=== PATIENT | female | born 2000 | race Caucasian/White ===

== ENCOUNTER 2020-11-18 13:40 | Outpatient (REF) | payer MEDICAID, SELFPAY ==
--- NOTE | ~2020-11-18 | XR_ITS ---
EXAMINATION: XR THORACIC SPINE XR LUMBAR SPINE CLINICAL INFORMATION: Scoliosis. Neck and back pain. COMPARISON: None TECHNIQUE: AP, lateral and swimmer's views of the thoracic spine. AP, lateral and bilateral oblique views of the lumbar spine. FINDINGS: Thoracic spine: There are 11 rib-bearing thoracic vertebral bodies. There is mild rightward curvature of the mid thoracic spine possibly centered at T7-T8. Vertebral body heights and intervertebral disc spaces are maintained. Lumbar spine: There are 5 nonrib-bearing lumbar vertebral bodies. There is mild leftward curvature of the lumbar spine possibly centered at L2-L3. There is relative straightening of the lumbar lordosis on the lateral view. Vertebral body heights and intervertebral disc spaces are maintained. No spondylolysis or spondylolisthesis. XR/XR thoracic spine 3V IMPRESSION: No acute abnormality.
--- NOTE | ~2020-11-18 | XR_ITS ---
EXAMINATION: XR THORACIC SPINE XR LUMBAR SPINE CLINICAL INFORMATION: Scoliosis. Neck and back pain. COMPARISON: None TECHNIQUE: AP, lateral and swimmer's views of the thoracic spine. AP, lateral and bilateral oblique views of the lumbar spine. FINDINGS: Thoracic spine: There are 11 rib-bearing thoracic vertebral bodies. There is mild rightward curvature of the mid thoracic spine possibly centered at T7-T8. Vertebral body heights and intervertebral disc spaces are maintained. Lumbar spine: There are 5 nonrib-bearing lumbar vertebral bodies. There is mild leftward curvature of the lumbar spine possibly centered at L2-L3. There is relative straightening of the lumbar lordosis on the lateral view. Vertebral body heights and intervertebral disc spaces are maintained. No spondylolysis or spondylolisthesis. XR/XR lumbar spine 4V min IMPRESSION: No acute abnormality.
--- NOTE | ~2020-11-18 | US_ITS ---
EXAMINATION: US DIAGNOSTIC ULTRASOUND BREAST, RIGHT CLINICAL INFORMATION: 19-year-old with new palpable mass 7:00 right breast for several months. 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 COMPARISON: Ultrasound right breast 08/03/2015, ultrasound guided right breast biopsy 08/11/2015. TECHNIQUE: Ultrasound right breast is targeted to the area of clinical concern lower right breast. Patient is able to point to the area of concern at time of imaging. Grayscale imaging and color Doppler are performed. FINDINGS: The palpable mass corresponds to a solid smooth oval mass measuring 2.9 x 1.6 x 2.6 cm. There is internal color flow. Finding most likely represents fibroadenoma/fibroepithelial lesion. The previously sampled fibroadenoma 5:00 position is reimaged separately and is similar in size measuring approximately 1.8 x 1.6 x 0.9 cm. Prior measurements in 2016 are 1.6 x 1.4 x 1.2 cm. Results are discussed with the patient at time of visit. Ultrasound-guided core biopsy is recommended. Results and recommendation called to medical van driver (Jen) for provider Rina Naranjo NP on 11/18/2020. US/US breast RT limited IMPRESSION: Solid mass 7:00 right breast 2.9 cm corresponding to new palpable lesion. ASSESSMENT: BI-RADS 4: Suspicious (subcategory 4A: Low suspicion for malignancy) RECOMMENDATION: Ultrasound-guided core biopsy right breast. This patient's information was entered into a reminder system with a target due date for their next mammogram.
== END 2020-11-18 13:41 | disposition home or self-care (01) ==
LOC: HO.MAMMO 13:40
PROVIDERS: Visit Provider Registered Nurse Community Health
DX: N63.15 Unspecified lump in the right breast, overlapping quadrants (principal); M54.6 Pain in thoracic spine; M54.2 Cervicalgia
CPT/HCPCS: 72072; 72110; 76642

== ENCOUNTER 2020-11-25 08:59 | Outpatient (REF) | payer MEDICAID, SELFPAY ==
--- NOTE | ~2020-11-25 | US_ITS ---
EXAMINATION: ULTRASOUND GUIDED CORE BIOPSY BREAST, RIGHT CLINICAL INFORMATION: 19-year-old with new 2.9 cm circumscribed palpable mass 7:00 position right breast. Prior history biopsy proven fibroadenoma lower inner right breast 2015. COMPARISON: Targeted ultrasound right breast 11/18/2020, ultrasound-guided biopsy right breast 08/11/2015, ultrasound right breast 08/03/2015. FINDINGS: Proper informed consent is obtained from the patient after discussion of the procedure, potential risks and complications, and alternatives. Patient was given an opportunity for questions. The patient appeared to understand. The patient consented to the procedure and signed the consent form. GUIDANCE: Ultrasound-guided; aseptic technique. LESION: Oval circumscribed solid mass 7:00 position measuring 2.9 x 1.6 x 2.6 cm. APPROACH: Lateral medial. ANESTHESIA: 15 mL 1% lidocaine. DERMATOTOMY: Single skin ezra dermatotomy performed. NEEDLE: 14-gauge Achieve core biopsy device with 13.5-gauge co-axial guide needle. CORES: 4. CLIP: HydroMARK; shape: butterfly. The patient tolerated the procedure well. No immediate complications. Home instructions reviewed with the patient. Final pathology results are pending. US/US breast ndl core biopsy RT IMPRESSION: 1. Status post ultrasound-guided core biopsy right breast. 2. Clip placed: HydroMARK; shape: butterfly. 3. Pathology pending. An addendum report will be issued.
== END 2020-11-25 09:00 | disposition home or self-care (01) ==
LOC: HO.MAMMO 08:59
PROVIDERS: Visit Provider Surgery
DX: N63.13 Unspecified lump in the right breast, lower outer quadrant (principal)
CPT/HCPCS: 19083; 88305; 99202

== ENCOUNTER → 2020-11-29 09:32 | Outpatient (BNVA) | payer MEDICAID, SELFPAY | PROVIDERS: PCP Registered Nurse Community Health; Visit Provider Surgery | DX: D24.1 Benign neoplasm of right breast (principal) | CPT/HCPCS: 99212 ==

== ENCOUNTER 2021-06-24 13:56 | Outpatient (REF) | payer MEDICAID, SELFPAY ==
--- NOTE | ~2021-06-24 | US_ITS ---
EXAMINATION: US DIAGNOSTIC ULTRASOUND BREAST, RIGHT CLINICAL INFORMATION: Biopsy-proven fibroadenoma 7:00 right breast, 2.9 cm. Follow-up imaging. COMPARISON: Ultrasound guided biopsy 11/25/2020, targeted right breast ultrasound 11/18/2020. TECHNIQUE: Ultrasound right breast is targeted to the 7:00 position at site of most recent biopsy. Grayscale imaging and color Doppler are performed. FINDINGS: The recently sampled fibroadenoma 7:00 position 6 cm from nipple is similar in size and contour measuring approximately 3.1 x 1.5 x 2.7 cm. Prior measurements are 2.9 x 1.6 x 2.6 cm. Specular echo from the clip marker is seen within the lesion. Preliminary results are provided to the patient at time of visit by the technologist. US/US breast RT limited IMPRESSION: Dominant fibroadenoma 7:00 position without significant change. ASSESSMENT: BI-RADS 2: Benign RECOMMENDATION: Clinical follow-up as needed.
== END 2021-06-24 13:57 | disposition home or self-care (01) ==
LOC: HO.MAMMO 13:56
PROVIDERS: Visit Provider Surgery
DX: N63.11 Unspecified lump in the right breast, upper outer quadrant (principal)
CPT/HCPCS: 76642

== ENCOUNTER 2021-10-03 08:09 | Emergency (ER) | payer MEDICAID, SELFPAY ==
--- NOTE | ~2021-10-03 | US_ITS ---
EXAMINATION: US OBSTETRICAL ULTRASOUND CLINICAL INFORMATION: Lower abdominal pain and positive test COMPARISON: None. LMP: Unknown. Gestational age by maternal dates is . Estimated date of delivery by maternal dates is . TECHNIQUE: Transabdominal and transvaginal first trimester OB ultrasound FINDINGS: There is a single intrauterine gestational sac with visible yolk sac, embryo/fetus, and cardiac activity. There is no significant subchorionic hemorrhage or hematoma. HR: 115 beats per minute. CRL (crown rump length): 0.3 cm (5 weeks 6 days +/- 4 days). EREN (estimated date of delivery): 05/30/2022 +/- 4 days. MATERNAL ADNEXA: The right maternal ovary measures 4.3 x 3.2 x 3.5 cm. There is a 2.4 x 1.8 x 2.5 cm right ovarian cyst. The left maternal ovary measures 2.4 x 1.5 x 1.8 cm. There is a small amount of fluid in the maternal pelvis. US/US OB pelvic and transvaginal IMPRESSION: 1. Single intrauterine gestation with ultrasound gestational age of 5 weeks 6 days +/- 4 days. 2. Estimated date of delivery is 05/30/2022 +/- 4 days.
[2021-10-03 08:14] VITALS: BP 124/75; PULSE 91; RESP 19; TEMP 36.6; O2SAT 99; BMI 23.2
--- NOTE | 2021-10-03 09:01 | ED.GENADULT ---
HPI - General Adult General Chief complaint: Abdominal Pain Stated complaint: + pregnacy test, vaginal pain & bleeding Time Seen by Provider: 10/03/21 09:01 Source: patient Mode of arrival: ambulatory Limitations: no limitations History of Present Illness HPI narrative: Patient is a 20 year old female presenting to the emergency department today with low abdominal pain and vaginal spotting. Patient states that 2 days ago, she had a positive test and today, she is having low abdominal pain with very scant vaginal spotting. Patient states that she has not seen an OBGYN. Patient states that this is her first ever and she does not know her blood type. Patient denies any dizziness, lightheadedness, nausea, vomiting, fever, chills, blurry vision, double vision, loss of vision, chest pain, difficulty breathing, shortness of breath, back pain, night sweats, pain with urination, increased urinary frequency, increased urinary urgency, blood in her urine or stool, syncope or a near syncopal episode, recent trauma or falls, bowel incontinence, bladder incontinence, bowel retention, bladder retention, or any other complaints at this time. Onset (ago): hour(s) Location: abdomen Radiation: non-radiation Severity: mild Severity scale (1-10): 2 Quality: dull Pain Consistency: intermittent Relieving factors: none Exacerbating factors: none Associated symptoms: denies other symptoms Treatments prior to arrival: none Related Data Home Medications Medication Instructions Recorded Confirmed No Known Home Meds 11/29/20 Allergies Allergy/AdvReac Type Severity Reaction Status Date / Time No Known Allergies Allergy Verified 11/29/20 09:33 Review of Systems Constitutional: Constitutional: Reports no additional constitutional complaints, Denies chills, Denies fever(s) and Denies night sweats Eyes: Eyes: Reports no additional eye complaints, Denies blurry vision, Denies change in vision, Denies diplopia, Denies eye discharge, Denies loss of vision and Denies eye pain ENT: Denies dizziness Cardiovascular: Cardiovascular: Reports no additional cardiovascular complaints, Denies chest pain, Denies lightheadedness, Denies Loss of Consciousness and Denies dyspnea Respiratory: Respiratory: Reports no additional respiratory complaints and Denies dyspnea Gastrointestinal: Gastrointestinal: Reports no additional gastrointestinal complaints, Reports abdominal pain, Denies melena, Denies hematochezia, Denies change in bowel habits and Denies change in stool character Genitourinary: Genitourinary: Denies hematuria, Denies urinary frequency, Denies dysuria, Denies urinary incontinence, Denies urinary hesitancy and Denies urinary urgency Comments: vaginal spotting Musculoskeletal: Musculoskeletal: Reports no additional musculoskeletal complaints, Denies numbness and Denies tingling Neurologic: Denies dizziness, Denies loss of vision, Denies numbness and Denies tingling Psychiatric: Psychiatric: Reports no additional psychiatric complaints Endocrine: Endocrine: Reports no additional endocrine complaints Hematologic/Lymphatic: Hematologic/Lymphatic: Reports no additional hematologic/lymphatic complaints Allergic/Immunologic: Allergic/Immunologic: Reports no additional allergic/immunologic complaints [facility] Past Medical History Attestation statement: The following information was validated with the patient. Source: old records reviewed Medical History Breast mass, right Fibroadenoma of right breast Social History Social History Alcohol intake: never Patient Tobacco Use Status: Never used Tobacco Advance Directives: No Advance Directives Information Provided: No Physical Exam ED Vital Signs: Vital Signs - 24 hr 10/03/21 08:14 Temperature 98 F Pulse Rate 91 Respiratory Rate 19 Blood Pressure 124/75 Pulse Oximetry 99 Oxygen Delivery Method Room Air BMI result Body Mass Index 23.2 Const General: cooperative, no acute distress, alert and awake Nutritional Appearance: well nourished Orientation/consciousness: patient oriented x3 Limitations: no limitations HENMT Head: Yes normal to inspection and Yes atraumatic Ears: hearing grossly normal bilaterally and external ears normal General nose exam: Normal external nose present, no nasal discharge noted and no epistaxis Face and sinus: Yes normal facial exam, No abrasion and No laceration Mouth: Normal oral and palatal mucosa present, no drooling and no muffled voice Eyes General: appearance normal, both eyes and all related structures Periorbital: periorbital findings normal Eyelids: Yes eyelids normal Conjunctivae: conjunctivae normal Pupils: Equal, round and reactive pupils present EOM: EOMs intact bilaterally Neck Neck: Yes normal visual inspection, Yes full ROM and Yes no lymphadenopathy Chest Chest palpation & inspection: normal inspection of the chest Resp Effort & Inspection: normal respiratory effort and able to speak in complete sentences Auscultation: clear to auscultation bilaterally Cardio Rate: regular rate Rhythm: regular rhythm GI Inspection: Yes normal to inspection Palpation (GI): Soft to palpation, not firm, nontender and no guarding Neuro General: patient oriented x3 and moves all extremities Cranial nerves: Yes Equal, round and reactive pupils present Cognition (Neuro): normal cognition Motor exam (neuro): 5/5 motor strength present throughout Sensory Exam: Normal double simultaneous stimulation for sensation Coordination: [id number] test normal Extrem General: Yes normal to inspection, Yes full ROM and Yes capillary refill normal Psych Appearance: grossly normal Mental Status: mental status grossly normal Affect: normal affect Attitude: cooperative Thought process: Normal thought process present Thought content: Normal thought content present Insight: Good insight present (Psych) Medical Decision Making MDM Narrative Medical decision making narrative: Patient is a 20 year old female presenting to the emergency department today with abdominal pain and a positive test. Patient's physical exam was unremarkable. Patient's blood work was unremarkable. Patient's transvaginal/pelvic US showed a single intrauterine gestation age of 5 weeks 6 days. I explained my physical exam findings as well as all test results to the patient. I answered all questions asked by the patient. I stressed the importance of the patient taking her medication as prescribed. I stressed the importance of the patient following up with her primary care provider and OBGYN. I stressed the importance of the patient returning to the emergency department immediately if her symptoms were to worsen or if she were to develop any dizziness, shortness of breath, difficulty breathing, chest pain, blurry vision, loss of vision, nausea, vomiting, abdominal pain, fever, chills, back pain, or any other complaints. Patient verbalized agreement and understanding with this treatment plan and discharge. Differential Diagnosis Differential Diagnosis: intrauterine , ectopic Medical Records Medical records reviewed: Yes I reviewed the patient's medical records. Lab Data Lab results reviewed: Yes I reviewed the patient's lab results. Result diagrams: 10/03/21 09:10/03/21 09:13 Labs: Lab Results 10/03/21 10/03/21 10/03/21 Range/Units 09:13 09:13 09:13 WBC 8.4 (4.8-10.8) X10*3/uL RBC 4.51 (4.20-5.50) X10*6/uL Hgb 13.9 (12.0-16.0) g/dl Hct 39.6 (37.0-47.0) % MCV 87.8 (80.0-98.0) fL MCH 30.8 (27.0-33.0) pg MCHC 35.1 H (31.0-35.0) g/dl RDW 11.8 (11.0-16.0) % Plt Count 244 (160-400) X10*3/uL MPV 11.0 (9.4-12.3) fL Immature Gran % (Auto) 0.2 (0.0-0.4) % Neut % (Auto) 70.7 (45-73) % Lymph % (Auto) 21.1 (20-40) % [place] % (Auto) 6.9 (2-11) % Eos % (Auto) 0.7 (0-4) % Baso % (Auto) 0.4 (0-2) % Lymph # (Auto) 1.8 (1.2-4.9) X10*3/uL [place] # (Auto) 0.6 (0.1-1.2) X10*3/uL Eos # (Auto) 0.1 (0.0-0.4) X10*3/uL Baso # (Auto) 0.0 (0.0-0.2) X10*3/uL Abs Immat Gran (auto) 0.02 (0.00-0.03) X10*3/uL Absolute Neuts (auto) 6.0 (2.0-8.3) x10*3/uL Absolute Nucleated RBC 0.000 (0.0-0.012) X10*3/uL Nucleated RBC % (auto) 0.0 (0.0-0.2) /100WBC Sodium 132 L (135-145) mmol/L Potassium 4.0 (3.3-5.1) mmol/L Chloride 102 (96-108) mmol/L Carbon Dioxide 23 (22-29) mmol/L Anion Gap 11 L (12-20) BUN 6 L (9-16) mg/dL Creatinine 0.66 (0.5-1.4) mg/dL Estim Creat Clear Calc 106.6 Estimated GFR > 60 Random Glucose 93 (60-115) mg/dL Calcium 9.3 (8.4-10.2) mg/dL Total Bilirubin 0.9 (0.0-1.0) mg/dL AST 12 (5-31) U/L ALT 10 (0-31) U/L Alkaline Phosphatase 84 (39-117) U/L Total Protein 7.0 (6.5-8.0) g/dL Albumin 4.1 (3.5-5.0) g/dL Beta HCG, Quant 57059 mIU/mL Blood Type O Positive Imaging Data Transvaginal / Pelvic US: Attestation: I personally reviewed and interpreted this imaging study as follows: My impression: Intrauterine . Radiologist's impression: EXAMINATION:? US OBSTETRICAL ULTRASOUND CLINICAL INFORMATION:? Lower abdominal pain and positive test COMPARISON:? None.? LMP: Unknown. Gestational age by maternal dates is . Estimated date of delivery by maternal dates is . TECHNIQUE: Transabdominal and transvaginal first trimester OB ultrasound ? FINDINGS: There is a single intrauterine gestational sac with visible yolk sac, embryo/fetus, and cardiac activity.? There is no significant subchorionic hemorrhage or hematoma. HR:? 115 beats per minute. CRL (crown rump length): ? 0.3 cm (5 weeks 6 days +/- 4 days). EREN (estimated date of delivery):? 05/30/2022 +/- 4 days. ? MATERNAL ADNEXA: ? ? The right maternal ovary measures 4.3 x 3.2 x 3.5 cm.? There is a 2.4 x 1.8 x 2.5 cm right ovarian cyst. The left maternal ovary measures 2.4 x 1.5 x 1.8 cm. There is a small amount of fluid in the maternal pelvis. US/US OB pelvic and transvaginal IMPRESSION: 1. Single intrauterine gestation with ultrasound gestational age of? 5 weeks 6 days +/- 4 days. 2. Estimated date of delivery is 05/30/2022 +/- 4 days. ? Dictated By: Gisella Lee MD Signed By: Electronically signed by Gisella Lee MD 10/03/21 [id number] Discharge Plan Discharge Clinical Impression: Patient Disposition: Home, Self-Care Instructions: (ED) Additional Instructions: Follow up with your primary care provider and OBGYN. Return to the emergency department immediately if your symptoms worsen or if you develop any dizziness, shortness of breath, difficulty breathing, chest pain, blurry vision, loss of vision, nausea, vomiting, abdominal pain, fever, chills, back pain, or any other complaints. Prescriptions: No Action No Known Home Meds Referrals: [facility] Family [facility] [Provider Group] (Call to establish and follow up with a primary care provider. If you already have one, please follow up with them.) [facility] Primary Care, [place] [Provider Group] (Call to establish and follow up with a primary care provider. If you already have one, please follow up with them.) [facility] Primary [facility],[place] [Provider Group] (Call to establish and follow up with a primary care provider. If you already have one, please follow up with them.) Giuliano Bey MD [Physician] - Interventions: ED Discharge Assessment Last Done: 10/03/21 12:35 Discharge Date/Time: 10/03/21 12:36 Print Language: Kiswahili
[2021-10-03 09:18] LABS: MANUAL DIFF FLAG NO
[2021-10-03 09:21] LABS: Basophils Percent Auto 0.4 % (0-2); Eosinophils Absolute Auto 0.1 X10*3/uL (0.0-0.4); Eosinophils Percent Auto 0.7 % (0-4); Hematocrit 39.6 % (37.0-47.0); Hemoglobin 13.9 g/dl (12.0-16.0); Imm Gran Abs Auto 0.02 X10*3/uL (0.00-0.03); Imm Gran Pct Auto 0.2 % (0.0-0.4); Lymphocytes Absolute Auto 1.8 X10*3/uL (1.2-4.9); Lymphocytes Percent Auto 21.1 % (20-40); Mean Corpuscular HGB Conc 35.1 g/dl (31.0-35.0); Mean Corpuscular Hemoglobin 30.8 pg (27.0-33.0); Mean Corpuscular Volume 87.8 fL (80.0-98.0); Monocytes Absolute Auto 0.6 X10*3/uL (0.1-1.2); Monocytes Percent Auto 6.9 % (2-11); Neutrophils Percent Auto 70.7 % (45-73); Platelet Count 244 X10*3/uL (160-400); Red Blood Count 4.51 X10*6/uL (4.20-5.50); Red Cell Distribution Width 11.8 % (11.0-16.0); White Blood Count 8.4 X10*3/uL (4.8-10.8)
[2021-10-03 09:50] LABS: Alanine Aminotransferase 10 U/L (0-31); Albumin Level 4.1 g/dL (3.5-5.0); Alkaline Phosphatase 84 U/L (39-117); Anion Gap 11 (12-20); Aspartate Amino Transferase 12 U/L (5-31); Bilirubin Total 0.9 mg/dL (0.0-1.0); Blood Urea Nitrogen 6 mg/dL (9-16); Calcium 9.3 mg/dL (8.4-10.2); Carbon Dioxide 23 mmol/L (22-29); Chloride 102 mmol/L (96-108); Creatinine Clr Calc Pharmacy 106.6; Estimated Glomerular Filt Rate > 60; Glucose Random 93 mg/dL (60-115); Sodium 132 mmol/L (135-145)
== END 2021-10-03 12:36 | disposition home or self-care (01) ==
PROVIDERS: Physician Assistant Medical; Emergency Provider Emergency Medicine
DX: O26.891 Other specified pregnancy related conditions, first trimester (principal); R10.30 Lower abdominal pain, unspecified; Z3A.01 Less than 8 weeks gestation of pregnancy
CPT/HCPCS: 36415; 76801; 76817; 80053; 84702; 85025; 86900; 86901; 99282; 99284

== ENCOUNTER 2021-10-08 07:05 | Emergency (ER) | payer MEDICAID, SELFPAY ==
--- NOTE | ~2021-10-08 | US_ITS ---
EXAMINATION: US OBSTETRICAL CLINICAL INFORMATION: Right lower quadrant pain. . Evaluate for ruptured cyst. COMPARISON: OB ultrasound dated 10/03/2021. LMP: Unknown. Gestational age by maternal dates is n/a. Estimated date of delivery by maternal dates is n/a. TECHNIQUE: Transabdominal grayscale, Doppler, and cine images were obtained. FINDINGS: There is a single intrauterine gestational sac with visible yolk sac, embryo/fetus, and cardiac activity. There is no significant subchorionic hemorrhage or hematoma. HR: 143 beats per minute. CRL (crown rump length): 0.8 cm (6 weeks 5 days +/- 4 days). EREN (estimated date of delivery): 05/29/2022 +/- 4 days. MATERNAL ADNEXA: The right maternal ovary measures 3.6 x 3.8 x 2.4 cm. There is redemonstration of a right ovarian probable corpus luteum measuring 1.9 x 1.7 x 1.9 cm. This previously measured 2.4 x 1.5 x 2.4 cm. The left maternal ovary measures 2.9 x 1.8 x 1.9 cm. Trace pelvic and right lower quadrant free fluid. Mildly prominent, peristalsing bowel loops in the region of the patient's pain. US/US OB <= 14 weeks fetus IMPRESSION: 1. Single intrauterine gestation with ultrasound gestational age of 6 weeks 5 days +/- 4 days. 2. Estimated date of delivery is 05/29/2022 +/- 4 days. 3. Redemonstration of a probable right ovarian corpus luteum now measuring up to 1.9 cm (previously 2.4 cm). 4. Trace pelvic and right lower quadrant free fluid.
[2021-10-08 07:14] VITALS: BP 124/76; PULSE 67; RESP 19; TEMP 36.6; O2SAT 98; BMI 23.2
[2021-10-08] MEDS: Acetaminophen 325 MG TABLET 975 MG PO (08:08)
[2021-10-08 08:57] VITALS: BP 114/67; PULSE 88; RESP 14; O2SAT 99
--- NOTE | 2021-10-08 08:58 | ED.ABDPAIN ---
HPI - Abdominal Pain General Chief Complaint: Abdominal Pain Stated Complaint: ovarian cyst /6 weeks preg. Time Seen by Provider: 10/08/21 07:50 Source: patient Mode of arrival: ambulatory History of Present Illness HPI narrative: 20-year-old female who is currently at 6 weeks and and 2 days who presents with right lower quadrant pain with nausea and has intermittent episodes of diarrhea. Patient states that she has had chills but no fevers and denies urinary symptoms at this time. On review of ultrasound from 10/03 patient is noted to have a right ovarian cyst. Related Data Home Medications Medication Instructions Recorded Confirmed No Known Home Meds 11/29/20 Allergies Allergy/AdvReac Type Severity Reaction Status Date / Time No Known Allergies Allergy Verified 11/29/20 09:33 Review of Systems Review of Systems Pertinent positives and negatives as stated in HPI 10 point review of systems is otherwise negative. PMFSH Past Medical History Source: nursing notes reviewed Social History Social History Alcohol intake: never Patient Tobacco Use Status: Never used Tobacco Use of substances other than those prescribed or required for medical reasons: No Advance Directives: No Advance Directives Information Provided: No Physical Exam ED Vital Signs: Vital Signs - 24 hr 10/08/21 07:14 10/08/21 08:57 10/08/21 10:43 Temperature 98 F Pulse Rate 67 88 68 Respiratory Rate 19 14 16 Blood Pressure 124/76 114/67 101/58 L Pulse Oximetry 98 99 100 Oxygen Delivery Method Room Air Room Air Room Air BMI result Body Mass Index 23.2 VITAL SIGNS: Reviewed. GENERAL: Well developed, well nourished, in no acute distress. HEAD: Normocephalic/atraumatic EYES: PERRLA, EOMI EARS: Ext canals without abnormality OROPHARYNX: no oral lesions noted, posterior pharynx clear LUNGS: Normal breath sounds. No adventitious sounds or accessory muscle use. SpO2<98> CARDIOVASCULAR: Regular rate and rhythm without noted murmurs ABDOMEN: Soft, right lower quadrant pain, McBurney's positive,, non-distended with bowel sounds. MUSCULOSKELETAL: No tenderness, deformities, or effusions noted on gross inspection. EXTREMITIES: No cyanosis, clubbing or edema. SKIN: Inspection of the skin reveals no rashes NEUROLOGIC: Alert and oriented x 4. Course Course Course Narrative: 20-year-old female with history and clinical presentation consistent with and known right ovarian cyst, will rule out possibility UTI or ruptured cyst. There is a possibility that this is acute appendicitis as well. Review of all investigations negative for acute leukocytosis/left shift, patient is afebrile, ultrasound is again negative for evidence to suggest ruptured cyst although there is increased pelvic fluid and the cyst does show some decrease in size possibly suggesting minimal rupture. taking all things into consideration at this time I feel that this is less likely to be an acute appendicitis in the absence any biomarkers and patient being afebrile in conjunction with the findings of some mild pelvic free fluid with a reduction in size of the right ovarian cyst. I discharge the patient home in stable condition with strict return precautions. MDM - Abdominal Pain Lab Data Result diagrams: 10/08/21 09:07 10/08/21 09:07 Labs: Lab Results 10/08/21 10/08/21 10/08/21 Range/Units 08:55 09:07 09:07 WBC 9.2 (4.8-10.8) X10*3/uL RBC 4.39 (4.20-5.50) X10*6/uL Hgb 13.5 (12.0-16.0) g/dl Hct 38.2 (37.0-47.0) % MCV 87.0 (80.0-98.0) fL MCH 30.8 (27.0-33.0) pg MCHC 35.3 H (31.0-35.0) g/dl RDW 11.8 (11.0-16.0) % Plt Count 234 (160-400) X10*3/uL MPV 10.9 (9.4-12.3) fL Immature Gran % (Auto) 0.4 (0.0-0.4) % Neut % (Auto) 72.5 (45-73) % Lymph % (Auto) 20.0 (20-40) % [place] % (Auto) 6.3 (2-11) % Eos % (Auto) 0.4 (0-4) % Baso % (Auto) 0.4 (0-2) % Lymph # (Auto) 1.9 (1.2-4.9) X10*3/uL [place] # (Auto) 0.6 (0.1-1.2) X10*3/uL Eos # (Auto) 0.0 (0.0-0.4) X10*3/uL Baso # (Auto) 0.0 (0.0-0.2) X10*3/uL Abs Immat Gran (auto) 0.04 H (0.00-0.03) X10*3/uL Absolute Neuts (auto) 6.7 (2.0-8.3) x10*3/uL Absolute Nucleated RBC 0.000 (0.0-0.012) X10*3/uL Nucleated RBC % (auto) 0.0 (0.0-0.2) /100WBC Sodium 135 (135-145) mmol/L Potassium 3.9 (3.3-5.1) mmol/L Chloride 105 (96-108) mmol/L Carbon Dioxide 23 (22-29) mmol/L Anion Gap 11 L (12-20) BUN 4 L (9-16) mg/dL Creatinine 0.61 (0.5-1.4) mg/dL Estim Creat Clear Calc 115.3 Estimated GFR > 60 Random Glucose 91 (60-115) mg/dL Calcium 8.8 (8.4-10.2) mg/dL Total Bilirubin 0.5 (0.0-1.0) mg/dL AST 13 (5-31) U/L ALT 8 (0-31) U/L Alkaline Phosphatase 79 (39-117) U/L Total Protein 6.8 (6.5-8.0) g/dL Albumin 4.0 (3.5-5.0) g/dL Urine Color YELLOW Urine Appearance HAZY Urine pH 7.0 (5.0-8.0) Ur Specific [place] <= 1.005 (1.005-1.025) Urine Protein NEG (NEG-TRACE) MG/DL Urine Glucose (UA) NEG (NEG) MG/DL Urine Ketones NEG (NEG) MG/DL Urine Blood NEG (NEG) Urine Nitrite NEG (NEG) Ur Leukocyte Esterase NEG (NEG) Discharge Plan Discharge Clinical Impression: Cyst of right ovary, Right lower quadrant abdominal pain, Patient Disposition: Home, Self-Care Instructions: (ED), Ovarian Cyst (ED) Additional Instructions: 1. You need to start your vitamins now. Increase your fluid intake. You have a prescription for your nausea. 2. Recommend Tylenol 1000 mg, orally, every 6 hours as needed for pain control. Do not exceed 4000 mg within 24 hours. You may also consider a heating pad as additional symptom relief. 3. Follow-up with your primary care provider or fishing reel assembler on Sunday morning for further evaluation return to the ER for worsening symptoms such as temperatures greater than 100.4, worsening pain Prescriptions: No Action No Known Home Meds
[2021-10-08 09:03] LABS: Appearance Urine HAZY; Color Urine YELLOW; Glucose Urine UA NEG (NEG); Leukocyte Esterase Urine NEG (NEG); Nitrite Urine NEG (NEG); Specific Gravity - Urine <= 1.005 (1.005-1.025); Urine Blood NEG (NEG); Urine Ketones NEG (NEG); Urine Protein NEG (NEG-TRACE)
[2021-10-08 09:12] LABS: MANUAL DIFF FLAG NO
[2021-10-08 09:20] LABS: Basophils Percent Auto 0.4 % (0-2); Eosinophils Percent Auto 0.4 % (0-4); Hematocrit 38.2 % (37.0-47.0); Hemoglobin 13.5 g/dl (12.0-16.0); Imm Gran Abs Auto 0.04 X10*3/uL (0.00-0.03); Imm Gran Pct Auto 0.4 % (0.0-0.4); Lymphocytes Absolute Auto 1.9 X10*3/uL (1.2-4.9); Mean Corpuscular HGB Conc 35.3 g/dl (31.0-35.0); Mean Corpuscular Hemoglobin 30.8 pg (27.0-33.0); Mean Platelet Volume 10.9 fL (9.4-12.3); Monocytes Absolute Auto 0.6 X10*3/uL (0.1-1.2); Monocytes Percent Auto 6.3 % (2-11); Neutrophils Absolute Auto 6.7 x10*3/uL (2.0-8.3); Neutrophils Percent Auto 72.5 % (45-73); Platelet Count 234 X10*3/uL (160-400); Red Blood Count 4.39 X10*6/uL (4.20-5.50); Red Cell Distribution Width 11.8 % (11.0-16.0); White Blood Count 9.2 X10*3/uL (4.8-10.8)
[2021-10-08 09:40] LABS: Alanine Aminotransferase 8 U/L (0-31); Alkaline Phosphatase 79 U/L (39-117); Anion Gap 11 (12-20); Aspartate Amino Transferase 13 U/L (5-31); Bilirubin Total 0.5 mg/dL (0.0-1.0); Blood Urea Nitrogen 4 mg/dL (9-16); Calcium 8.8 mg/dL (8.4-10.2); Carbon Dioxide 23 mmol/L (22-29); Chloride 105 mmol/L (96-108); Creatinine Clr Calc Pharmacy 115.3; Estimated Glomerular Filt Rate > 60; Glucose Random 91 mg/dL (60-115); Potassium 3.9 mmol/L (3.3-5.1); Sodium 135 mmol/L (135-145); Total Protein 6.8 g/dL (6.5-8.0)
--- NOTE | 2021-10-08 10:09 | PC.NURSE ---
Out of room for ultrasound
[2021-10-08 10:43] VITALS: BP 101/58; PULSE 68; RESP 16; O2SAT 100
== END 2021-10-08 11:32 | disposition home or self-care (01) ==
PROVIDERS: Emergency Provider Student in an Organized Health Care Education/Training Program
DX: O34.81 Maternal care for other abnormalities of pelvic organs, first trimester (principal); N83.201 Unspecified ovarian cyst, right side; O26.891 Other specified pregnancy related conditions, first trimester; R10.31 Right lower quadrant pain; Z3A.01 Less than 8 weeks gestation of pregnancy
CPT/HCPCS: 36415; 76801; 80053; 81003; 85025; 99284

== ENCOUNTER 2022-03-14 11:04 | Emergency (ER) | payer MEDICAID, SELFPAY ==
[2022-03-14 11:08] VITALS: BP 101/61; PULSE 101; RESP 18; TEMP 36.4; O2SAT 100; BMI 26.2
[2022-03-14 12:06] LABS: COVID-19 Test Negative (Negative); IDNOW Serial# 55D5AD1C
[2022-03-14 12:45] LABS: Strep A Nucleic Acid Negative (Negative)
--- NOTE | 2022-03-14 13:02 | ED_ITS ---
HPI - Headache General Chief Complaint: Headache Stated Complaint: Sore throat/Headache/ABd pain Time Seen by Provider: 03/14/22 11:48 Source: patient Mode of arrival: ambulatory Limitations: no limitations History of Present Illness HPI Narrative: 21-year-old female presented with headache, generalized body ache, sore throat, patient had recent exposure to a family member who was positive for COVID. Patient is 11 months yesterday she had upper abdominal pain now the pain is gone no nausea, no vomiting, no diarrhea, no vaginal discharge, no vaginal bleeding, no abdominal contractions. Related Data Home Medications Medication Instructions Recorded Confirmed No Known Home Meds 11/29/20 Allergies Allergy/AdvReac Type Severity Reaction Status Date / Time No Known Allergies Allergy Verified 11/29/20 09:33 Review of Systems Review of Systems: All other systems are reviewed and are negative Constitutional: Reports as per HPI and Reports no additional constitutional complaints Eyes: Reports as per HPI and Reports no additional eye complaints Reports system reviewed and no additional complaints, except as documented Cardiovascular: Reports as per HPI and Reports no additional cardiovascular complaints Respiratory: Reports as per HPI and Reports no additional respiratory complaints Gastrointestinal: Reports as per HPI and Reports no additional gastrointestinal complaints Genitourinary: Reports no additional female genitourinary complaints Musculoskeletal: Reports no additional musculoskeletal complaints Skin/Breast: Reports system reviewed and no additional complaints, except as docu Psychiatric: Reports no additional psychiatric complaints Endocrine: Reports no additional endocrine complaints Hematologic/Lymphatic: Reports no additional hematologic/lymphatic complaints Allergic/Immunologic: Reports no additional allergic/immunologic complaints Reports system reviewed and no additional complaints, except as documented and Reports Abnormal speech present [facility] Past Medical History Medical History Breast mass, right Fibroadenoma of right breast Social History Social History Alcohol intake: never Patient Tobacco Use Status: Never used Tobacco Smoked in Last 30 Days: No Use of substances other than those prescribed or required for medical reasons: No Advance Directives: No Advance Directives Information Provided: No Patient : Yes Physical Exam Vital Signs: Vital Signs: Last Vital Signs Temp 98.8 F 03/14/22 13:58 Pulse 105 H 03/14/22 13:58 Resp 16 03/14/22 13:58 BP 109/72 03/14/22 13:58 Pulse Ox 100 03/14/22 13:58 O2 Del Method 03/14/22 13:58 BMI result Body Mass Index 26.2 Vital signs have been reviewed as appeared to be correct. Blood pressure normal. Heart rate normal. Respiration rate normal. Temperature normal. Oxygen saturation normal. Appearance: Alert. Oriented X3. No acute distress. Head: Normal external exam. Normocephalic. Atraumatic. No Pfeiffer signs noted. No raccoon eyes noted Eyes: PERRLA. EOMI. Conjunctiva and sclera normal. Eyelids normal. ENT: TM's Normal. Pharynx normal. Uvula midline. Moist mucous membranes. No trismus noted. No drooling noted. No muffled voice noted. Neck: Normal inspection. Neck supple. FROM. No adenopathy. Thyroid Normal. No meningeal signs. No neck mass noted. CVS: Normal heart rate and rhythm. Heart sound normal. No murmurs noted. Pulses normal throughout. Respiratory: No respiratory distress. Painless inspiration. Breath sounds normal. No wheezes/rales/rhonchi noted. Chest nontender. No accessory muscle usage noted or decreased air movement noted. Abdomen: Soft and nontender. Bowel sounds normal in all 4 quadrants. No distention noted. No organomegaly noted. No visible injury noted. Back: No CVA tenderness. Full range of motion noted. Skin: Skin warm and dry. Normal skin color. Normal skin turgor. No rashes/lesions/lacerations noted. Extremities: No lower extremity edema. Extremities exhibit normal range of motion. Extremities nontender. Neuro: Oriented X 3. Cranial nerve exam: II-XII are grossly intact No motor deficit. No sensory deficit. Reflexes normal. Course Course Course Narrative: 21-year-old female 11 months no issue with , patient is negative for strep infection, patient also is negative for flu/COVID/RSV. MDM - Headache Lab Data Attestation: I reviewed the patient's lab results. Labs: Lab Results 03/14/22 03/14/22 03/14/22 Range/Units 11:13 12:26 12:26 COVID-19 (SO) Negative (Negative) COVID-19 Clin Com See Note Influenza Type A (PCR) NEGATIVE (Negative) Influenza Type B (PCR) NEGATIVE (Negative) RSV RNA Qual (PCR) NEGATIVE (Negative) SARS-CoV-2 RNA (RT-PCR) NEGATIVE (Negative) S. pyogenes GrpA EDDIE Negative (Negative) Discharge Plan Discharge Clinical Impression: Headache, Acute viral syndrome Patient Disposition: Home, Self-Care Instructions: Viral Syndrome (ED) Prescriptions: No Action No Known Home Meds Referrals: Rina Naranjo NP [Primary Care Provider] - Stand Alone Forms: Work/School Release
--- NOTE | 2022-03-14 13:04 | PC.NURSE ---
pt a/o x 4 no sob/stacey noted lungs - cta, heart sound regular. speaks in full sentences. pt is - 29wks due 05/30/22 and ob is [facility] [place]. no edema noted bx + x 4 quads. abd soft and non-tender 7/10 sore throat. pt aware of plan of care.
[2022-03-14 13:38] LABS: Influenza A PCR NEGATIVE (Negative); Influenza B PCR NEGATIVE (Negative); Resp Syncy Virus RNA Qual PCR NEGATIVE (Negative); SARS COV2 PCR INHOUSE NEGATIVE (Negative)
[2022-03-14 13:58] VITALS: BP 109/72; PULSE 105; RESP 16; TEMP 37.1; O2SAT 100
== END 2022-03-14 14:17 | disposition home or self-care (01) ==
PROVIDERS: Emergency Provider Emergency Medicine; PCP Registered Nurse Community Health
DX: B34.9 Viral infection, unspecified (principal); R51.9 Headache, unspecified; J02.9 Acute pharyngitis, unspecified; Z20.822 Contact with and (suspected) exposure to COVID-19
CPT/HCPCS: 0241U; 87635; 87651; 99283; 99284

== ENCOUNTER 2024-02-14 16:02 | Outpatient (REF) | payer MEDICAID, SELFPAY ==
[2024-02-17 03:28] LABS: TS Negative Control Passed; TS Panel A 0; TS Panel B 0; TS Positive Control Passed; TSpotTB Negative (Negative)
== END 2024-02-14 16:03 | disposition home or self-care (01) ==
LOC: HO.HHCL 16:02
PROVIDERS: Visit Provider Internal Medicine
DX: Z11.1 Encounter for screening for respiratory tuberculosis (principal)
CPT/HCPCS: 36415; 86481

== ENCOUNTER 2025-03-31 08:58 | Outpatient (REF) | payer MEDICAID, SELFPAY ==
[2025-04-03 06:44] LABS: TS Negative Control Passed; TS Panel A 0; TS Panel B 0; TS Positive Control Passed; TSpotTB Negative (Negative)
== END 2025-03-31 08:59 | disposition home or self-care (01) ==
LOC: HO.HHCL 08:58
PROVIDERS: Visit Provider Nurse Practitioner
DX: Z11.1 Encounter for screening for respiratory tuberculosis (principal)
CPT/HCPCS: 36415; 86481